=== PATIENT | female | born 1935 | race Caucasian/White ===

== ENCOUNTER 2021-10-14 12:29 | Emergency (ER) | payer MEDICARE, MEDICAID ==
[~2021-10-14] VITALS: Ht 152.4 cm; Wt 56.8 kg
[2021-10-14] MEDS ORDERED: KETOROLAC TROMETHAMINE 30 MG/ML VIAL IM ONE (14:15)
[2021-10-14 15:14] VITALS: BP 154/69
[2021-10-14] MEDS ORDERED: IBUP-2070 PO (15:16)
== END 2021-10-14 15:40 | disposition home or self-care (01) ==
LOC: EMS 12:29
DX: M25.551 Pain in right hip (principal); E11.9 Type 2 diabetes mellitus without complications; I10 Essential (primary) hypertension; F17.210 Nicotine dependence, cigarettes, uncomplicated
CPT/HCPCS: 73502; 82962; 96372; 99283; J1885

== ENCOUNTER 2022-08-13 10:54 | Emergency (ER) | payer MEDICARE, MEDICAID ==
[~2022-08-13] VITALS: Ht 165.1 cm; Wt 72.7 kg
[~2022-08-13 10:54] MED LIST: IBUP-1492 PO
[2022-08-13 11:26] LABS: GLUCOMETER DEV NAME(LOC) ERT.5; GLUCOSE,POINT OF CARE 160 MG/DL (70-110)
[2022-08-13 11:43] VITALS: BP 133/107
== END 2022-08-13 12:35 | disposition home or self-care (01) ==
LOC: EMS 10:59
DX: K59.00 Constipation, unspecified (principal); E11.9 Type 2 diabetes mellitus without complications; I10 Essential (primary) hypertension; F17.210 Nicotine dependence, cigarettes, uncomplicated; Z88.8 Allergy status to other drugs, medicaments and biological substances
CPT/HCPCS: 82962; 99282